=== PATIENT | male | born 1985 | race Caucasian/White ===

== ENCOUNTER 2019-12-25 18:18 | Emergency (ER) | payer MEDICAID, SELFPAY ==
[~2019-12-25] VITALS: Ht 180.3 cm; Wt 99.8 kg
[2019-12-25 18:20] VITALS: BP 129/92; Ht 180.3 cm; Wt 99.8 kg
== END 2019-12-25 19:48 | disposition home or self-care (01) ==
LOC: ED 18:18
DX: U07.1 COVID-19 (principal)
CPT/HCPCS: Q0092